=== PATIENT | male | born 1995 | race African-American/Black ===

== ENCOUNTER 2016-06-16 02:41 | Inpatient (IN) | payer BC ==
--- NOTE | ~2016-06-16 | PN ---
Unit #: [id number] #: [id number] Patient: CANDI ORDONEZ [id number] [facility] [address] [place] [address] [id number] I MR#: [id number] NAME: CANDI ORDONEZ ROOM: [facility] Age: 21 Sex: M Admission Date: 06/16/2016 : 1995 Attending Physician: Fabiola Garcia M.D. Admitting Physician: Fabiola Garcia M.D. Primary Care Physician: Primary Care Physician Lise BAKER NOTES DATE OF SERVICE: 06/20/2016 SUBJECTIVE Mr. Ordonez is a 21-year-old male who was seen today and chart was reviewed, and case was discussed with the staff. He has been anxious, withdrawn, and rather seclusive to himself. Meanwhile, he has been cooperative with treatment recommendation and has been taking the medications and tolerating them fairly well with no reported side effects, though has been reporting some persistent depressive symptoms along with anxiety. MENTAL STATUS EXAMINATION Young male who was casually dressed with fair personal hygiene, appears to be in no acute distress or discomfort. He was awake and alert on interaction with intact orientation. His mood was anxious with a congruent affect. He denies any suicidal or homicidal ideations. His insight and judgment remain slightly impaired. TREATMENT PLAN 1. We will continue him on his current medications and treatment protocol. We will monitor his response to medications and make further adjustments as needed. 2. We will continue to follow up. Dictated by... Adonis Diggs/elis TD: 06/20/2016 19:24 JOB #: [id number] Unit #: [id number] #: [id number] Patient: CANDI ORDONEZ PROGRESS NOTES Page 1 of 1 X Fabiola Garcia MD PROGRESS NOTE
--- NOTE | ~2016-06-16 | PA ---
Unit #: [id number] #: [id number] Patient: CANDI ORDONEZ [id number] [facility] [address] [place] [address] [id number] I MR#: [id number] NAME: CANDI ORDONEZ ROOM: [facility] Age: 21 Sex: M Admission Date: 06/16/2016 : 1995 Date of Assessment: 06/16/2016 Attending Physician: Fabiola Garcia M.D. Admitting Physician: Fabiola Garcia M.D. Primary Care Physician: Primary Care Physician No PSYCHIATRIC ASSESSMENT DATE OF SERVICE 06/16/2016. IDENTIFYING DATA Mr. Ordonez is a 21-year-old, single, male, who is a resident of [place], [place] and was brought to the hospital accompanied by his mother. CHIEF COMPLAINT "I've been fine. I've not been depressed or anything like that." HISTORY OF PRESENT ILLNESS Mr. Ordonez is a 21-year-old male, who was brought to the hospital by his mother. Upon presentation, he stated "I went to see my event security officer today and I really cannot explain to you why I'm here. I was told to come here because I don't know, I guess the thought I was depressed and need an assessment and not to give her a valid reason to come to [facility]." The patient reports that his mother brought him to [facility] for assessment and he was alone. The patient reports that he will start a job at [employer] tomorrow and he is not currently enrolled and he reports he lives with his mother and that he has always lived with his mother reports that he has not had any income, then he starts a new job tomorrow. The patient reports his mother is the primary support system and reports that he has a 7-month-old son, and that he does not have a custody or visitation on his son. The patient reports arguments with his son's mother that he does not have a good support network and reports that he was previously fired from [employer] for not calling in and not coming to work. He denies any current suicidal or homicidal ideation, though he reports history of suicidal ideation, it appears the attempt in 03/2013 by slitting his wrist to bleed and reports history of self-injurious behavior in the past, and has not intentionally self harmed in over 4 years. [facility] by his event security officer and presented for assessment and was previously hospitalized at [facility] in 2014, has not followed up with outpatient care due to limited financial resources and presented today with lack of social support system. Initially, outpatient recommendation was made, but the patient was seen to be exhibiting some significant depressive symptoms and as such, recommendation for inpatient level of care was made. SUBSTANCE ABUSE HISTORY The patient reports history of alcohol and cannabis abuse in the past. PAST PSYCHIATRIC HISTORY Unit #: [id number] #: [id number] Patient: CANDI ORDONEZ The patient has had a history of inpatient psychiatric treatment at [facility] in 2013 and currently is not active in any treatment program, is not seeing a psychiatrist, not taking any psychotropic medications. PAST MEDICAL HISTORY No acute or chronic medical illnesses. ALLERGIES No known medication allergies. PERSONAL AND SOCIAL HISTORY A 21-year-old male, who reports he lives at home with his mother and is employed, but he has a new job lined up. He denies any current alcohol and drug abuse. MENTAL STATUS EXAMINATION Young male, who was casually dressed with fair personal hygiene, appears to be in no acute distress or discomfort. He was awake and alert on interaction with intact orientation to time, place, and person. His mood was anxious and depressed with a congruent affect. His speech was slow and restricted in content. His thought processes were disorganized with some looseness of associations and flight of ideas. He denies any current suicidal or homicidal ideations, and also denies any auditory or visual hallucinations. His insight and judgment remain significantly impaired. DIAGNOSTIC IMPRESSION Psychiatric: Major depressive disorder, recurrent, moderate, without psychotic features. Medical: None. Stressors: Moderate psychosocial stressors. TREATMENT PLAN 1. The patient has presented with history of substance abuse and mood disorder, and has been decompensating and will need inpatient hospitalization for safety and stabilization. We will start him back on his home medications. We will also recommend antidepressant therapy. 2. Supportive therapy was provided to the patient. ESTIMATED LENGTH OF STAY 5 to 7 days. ABILITY TO HELP SELF Limited. WILLINGNESS TO HELP SELF The patient appears to be willing to help self. STRENGTHS 1. Communicative. 2. Cooperative. PROBLEMS 1. Chronic dysphoric symptoms. 2. Poor social support system. Unit #: [id number] #: [id number] Patient: CANDI ORDONEZ DISCHARGE CRITERIA This will be contingent upon the patient's ability to show resolution of his depression and anxiety and his ability to stay safe to himself, particularly after discharge from the hospital. Dictated by... Adonis Diggs/elis TD: 06/16/2016 08:22 JOB #: [id number] PSYCHIATRIC ASSESSMENT Page 1 of 1 X Fabiola Garcia MD X PSYCHIATRIC ASSESSMENT
--- NOTE | ~2016-06-16 | PN ---
Unit #: [id number] #: [id number] Patient: CANDI ORDONEZ [id number] [facility] [address] [place] [address] [id number] I MR#: [id number] NAME: CANDI ORDONEZ ROOM: [facility] Age: 21 Sex: M Admission Date: 06/16/2016 : 1995 Attending Physician: Fabiola Garcia M.D. Admitting Physician: Fabiola Garcia M.D. Primary Care Physician: Primary Care Physician Lise PATTON PROGRESS NOTES DATE OF SERVICE: 06/21/2016 SUBJECTIVE Mr. Ordonez is a 21-year-old male who was seen today and chart was reviewed and case was discussed with the staff. He has been anxious, withdrawn, and rather seclusive to himself. Meanwhile, he has been complaining of persistent depression and anxiety. He has been taking medications and tolerating them fairly well with no reported side effects. MENTAL STATUS EXAMINATION Young male, who was casually dressed with fair personal hygiene, appears to be in no acute distress or discomfort. He was awake and alert on interaction with intact orientation. His mood was anxious with a congruent affect. He denies any suicidal or homicidal ideation. His insight and judgment remain slightly impaired. TREATMENT PLAN 1. We will continue him on his current medications and treatment protocol. We will monitor his response to the medications and make further adjustments as needed. 2. We will continue to follow up. Dictated by... Adonis Diggs/elis TD: 06/21/2016 08:29 JOB #: [id number] [facility] PROGRESS NOTES Page 1 of 1 X Fabiola Garcia MD PROGRESS NOTE
--- NOTE | ~2016-06-16 | DS ---
Unit #: [id number] #: [id number] Patient: CANDI ORDONEZ [id number] [facility] [address] [place] [address] [id number] I MR#: [id number] NAME: CANDI ORDONEZ ROOM: [facility] Age: 21 Sex: M Admission Date: 06/16/2016 : 1995 Discharge Date: 06/22/2016 Attending Physician: Fabiola Garcia M.D. Primary Care Physician: Primary Care Physician No DISCHARGE SUMMARY IDENTIFYING DATA Mr. Ordonez is a 21-year-old single male, who is a resident of [place], [place] and was brought to the hospital accompanied by his mother. DISCHARGE DIAGNOSES Psychiatric: Major depressive disorder, recurrent, moderate, without psychotic features. Medical: None. Stressors: Moderate psychosocial stressors. HISTORY OF PRESENT ILLNESS Please see initial psychiatric evaluation for details. PAST PSYCHIATRIC HISTORY Please see initial psychiatric evaluation for details. PAST MEDICAL HISTORY Please see initial psychiatric evaluation for details. HOSPITAL COURSE The patient was admitted to the adult psychiatric and chemical dependency unit at [facility] and was oriented to the hospital environment. Routine p.r.n. medications were initiated, and he was started back on his home medications and medications were adjusted and he was closely monitored. He was taking medications regularly and was tolerating them fairly well and was able to show a decent and therapeutic response and was willing to continue treatment on an outpatient basis and as such, it was decided that he will be discharged home and will continue treatment on an outpatient basis. DISCHARGE MEDICATIONS Lexapro 10 mg a day for depression. DISCHARGE CONDITION Stable. PROGNOSIS Fair. Dictated by... Fabiola Garcia M.D. Unit #: [id number] #: [id number] Patient: CANDI ORDONEZ IAA/modl TD: 06/22/2016 07:04 JOB #: [id number] DISCHARGE SUMMARY Page 1 of 1 X Fabiola Garcia MD X DISCHARGE SUMMARY
--- NOTE | ~2016-06-16 | PN ---
Unit #: [id number] #: [id number] Patient: CANDI NAVARRO [id number] [facility] [address] [place] [address] [id number] I MR#: [id number] NAME: CANDI NAVARRO ROOM: [facility] Age: 21 Sex: M Admission Date: 06/16/2016 : 1995 Attending Physician: Fabiola Garcia M.D. Admitting Physician: Fabiola Garcia M.D. Primary Care Physician: Primary Care Physician Lise PATTON PROGRESS NOTES DATE 06/17/2016 DISCUSSION The patient offers no new complaints today. Given his history of extensive alcohol use, I will order transfer to the [facility] or [address] [place] [address] unit. Dictated by... Reji Spain M.D. CB/rhianna TD: 06/17/2016 15:25 JOB #: [id number] [facility] PROGRESS NOTES Page 1 of 1 X Reji Spain MD X PROGRESS NOTE
--- NOTE | ~2016-06-16 | PN ---
Unit #: [id number] #: [id number] Patient: CANDI ORDONEZ [id number] [facility] [address] [place] [address] [id number] I MR#: [id number] NAME: CANDI ORDONEZ ROOM: [facility] Age: 21 Sex: M Admission Date: 06/16/2016 : 1995 Attending Physician: Fabiola Garcia M.D. Admitting Physician: Fabiola Garcia M.D. Primary Care Physician: Primary Care Physician Lise PATTON PROGRESS NOTES DATE OF SERVICE: 06/19/2016 SUBJECTIVE Mr. Ordonez is a 21-year-old male with mood disorder, who was seen today and chart was reviewed, and case was discussed with the staff. He remains anxious, withdrawn, depressed, and rather seclusive to himself. Meanwhile, he has been cooperative with treatment recommendations and has been taking medications and tolerating them fairly well with no reported side effects. MENTAL STATUS EXAMINATION Young male who was casually dressed with fair personal hygiene, appears to be in no acute distress or discomfort. He was awake and alert on interaction with intact orientation. His mood was anxious and depressed with a congruent affect. His speech was slow and restricted in content. He reports having suicidal ideation, but denies any homicidal ideation. His insight and judgment remain slightly impaired. TREATMENT PLAN We will continue him on his current medications and treatment protocol. We will monitor his response to medications and make further adjustments as needed. Dictated by... Adonis Diggs/elis TD: 06/19/2016 17:22 JOB #: [id number] [facility] PROGRESS NOTES Page 1 of 1 X Fabiola Garcia MD PROGRESS NOTE
--- NOTE | ~2016-06-16 | HP ---
Unit #: [id number] #: [id number] Patient: RAMIRO NAVARRO [id number] [place] [address] [id number] I MR#: [id number] NAME: RAMIRO NAVARRO ROOM: [facility] Age: 21 Sex: M Admission Date: 06/16/2016 : 1995 Attending Physician: Fabiola Garcia M.D. Admitting Physician: Fabiola Garcia M.D. Primary Care Physician: Primary Care Physician No HISTORY AND PHYSICAL HISTORY OF PRESENT ILLNESS Ramiro is a 21 year old admitted to [address] [place] [address] because of his abuse of alcohol. PAST MEDICAL HISTORY Long history of alcohol abuse. PAST SURGICAL HISTORY Nothing reported. ALLERGIES No known drug allergies. SOCIAL HISTORY Smokes, drinks alcohol frequently and denies illicit drug use. FAMILY HISTORY Medically noncontributory. REVIEW OF SYSTEMS CONSTITUTIONAL: No fever or chills. HEENT: Denies any sore throat, ear pain or runny nose. CARDIOVASCULAR: Denies chest pain, irregular heart rhythm or palpitations. CHEST: Denies shortness of breath or cough. No hemoptysis. GASTROINTESTINAL: Denies nausea, vomiting, diarrhea or chronic constipation. ENDOCRINE: Denies history of increased thirst or urination. No recent significant weight loss or gain. GENITOURINARY: Denies dysuria, frequency, or hematuria. SKIN: Denies any rashes. HEMATOLOGIC: Denies history of increased bleeding or bruising. MUSCULOSKELETAL: Denies any hot, swollen joints. No generalized muscle pain. NEUROLOGIC: Denies problems with vision or speech. No frequent, severe headaches. No numbness, tingling or weakness in any extremities. Denies loss of bladder or bowel control. CURRENT MEDICATIONS 1. Lexapro 10 mg daily. 2. Nicotine patch 14 mg daily. 3. Vistaril p.r.n. 4. Desyrel p.r.n. 5. Milk of Magnesia p.r.n. Unit #: [id number] #: [id number] Patient: RAMIRO NAVARRO 6. Maalox p.r.n. 7. Tylenol p.r.n. PHYSICAL EXAMINATION GENERAL: Alert, well-nourished, in no apparent distress. VITAL SIGNS: Blood pressure 113/70, heart rate 82, respirations 16, temperature 98.6. WEIGHT: 161. HEIGHT: 5 feet 5 inches. SKIN: Warm and dry without rash or lesion. HEENT: Normocephalic. TMs not viewed. Oral and nasal passages clear. Conjunctivae clear. PERRLA. EOMs intact. NECK: Supple without lymphadenopathy or thyromegaly. HEART: Regular rate and rhythm without murmur. LUNGS: Clear. ABDOMEN: Soft, nontender. : Not done. EXTREMITIES: No evidence of cyanosis, clubbing or edema. Moves all without focal deficit. NEUROLOGICAL: Grossly within normal limits. Cranial Nerves: II: Visual medel are intact. III, IV AND : Extraocular movements are intact. Pupils are equal, round and reactive to light. V: Facial sensation is grossly normal. VII: Facial movements and expression are normal. VIII: Auditory acuity grossly intact. IX, X: Uvula is midline. Phonation is normal. XI: Patient shrugs shoulders and turns head normally. XII: Tongue protrudes in the midline. Sensory and Motor Function: Sensory and motor sensation is grossly normal. Motor: moves all extremities well. Coordination: Gait is normal. Deep Tendon Reflexes: Intact. IMPRESSION Psychiatric admission. RECOMMENDATIONS PSYCHIATRIC: Per psychiatrist. MEDICAL: See no contraindications to participate in facility's activities. MEDICAL PROGNOSIS Good. MEDICAL CONDITION Stable. Dictated by... Aroldo NgoAPorsha. for Adonis Snyder/rhianna TD: 06/16/2016 23:15 JOB #: [id number] Unit #: [id number] #: [id number] Patient: RAMIRO NAVARRO HISTORY AND PHYSICAL Page 1 of 1 X Oneida Wray HISTORY AND PHYSICAL
--- NOTE | ~2016-06-16 | TN ---
Unit #: [id number] #: [id number] Patient: CANDI ORDONZE [id number] [facility] [address] [place] [address] [id number] I MR#: [id number] NAME: CANDI ORDONEZ ROOM: [facility] Age: 21 Sex: M Admission Date: 06/16/2016 : 1995 Discharge Date: 06/22/2016 Attending Physician: Fabiola Garcia M.D. Primary Care Physician: Primary Care Physician No LOC TRANSFER NOTE DATE OF SERVICE: 06/23/2016 IDENTIFYING DATA Mr. Ordonez is a 21-year-old single male who is a resident of [place], [place] and was stepped down to the outpatient treatment program from the adult inpatient chemical dependency unit, where he was hospitalized under my care from 06/16/2016 to 06/22/2016 and was diagnosed and treated for depression and alcohol dependence, was medically detoxed from alcohol and was stabilized on a combination of Lexapro. He reports that he went home and has been staying with his mother in a clean environment, but that he has been struggling with his anxiety and seen to be shaky and tremulous, reports that in the past he has been on Vistaril and that it has helped him. Meanwhile, he reports his depression is better with Lexapro which he has been taking and tolerating it regularly. SUBSTANCE ABUSE HISTORY The patient denies any history of alcohol. The patient reports history of alcohol dependence, but denies any other drug abuse. PAST PSYCHIATRIC HISTORY The patient has had history of inpatient and outpatient psychiatric and chemical dependency treatment and currently he is on Lexapro 10 mg a day. PAST MEDICAL HISTORY No acute or chronic medical illnesses. ALLERGIES No known medication allergies. PERSONAL AND SOCIAL HISTORY A 21-year-old male who reports that he is single, unemployed, and lives with his mother and has fairly decent social support system. MENTAL STATUS EXAMINATION Young male who was casually dressed with fair personal hygiene, appears to be in no acute distress or discomfort. He was awake and alert on interaction with intact orientation. His mood was anxious and depressed with a congruent affect. His speech was slow and goal directed. His thought processes were disorganized with some looseness of associations. He denies any suicidal or homicidal ideations, and also denies any auditory or visual hallucinations. His insight and judgment remain significantly impaired. Unit #: [id number] #: [id number] Patient: CANDI ORDONEZ DIAGNOSTIC IMPRESSION Psychiatric: Major depressive disorder, recurrent, moderate, without psychotic features; alcohol dependence, moderate. Medical: None. Stressors: Moderate psychosocial stressors. TREATMENT PLAN 1. The patient has presented with a history of mood disorder and substance abuse. We will recommend enrolling him into the outpatient treatment program and maintaining him on his current medications. We will monitor his response to medications and make further adjustments as needed. 2. We will also prescribe him Vistaril to help with the anxiety and trazodone to help him with sleep. 3. Supportive therapy was provided to the patient. ESTIMATED LENGTH OF STAY 14 to 21 days. ABILITY TO HELP SELF Limited. WILLINGNESS TO HELP SELF The patient appears to be willing to help self. STRENGTHS 1. Communicative. 2. Cooperative. PROBLEMS 1. Chronic dysphoric symptoms. 2. Chronic chemical dependency. DISCHARGE CRITERIA This will be contingent upon the patient's ability to show resolution of his depression and anxiety and his ability to stay safe to himself, particularly after discharge from the hospital. Dictated by... Fabiola Garcia M.D. YUSUF/elis TD: 06/23/2016 13:59 JOB #: [id number] LOC TRANSFER NOTE Page 1 of 1 X Fabiola Garcia MD X LOC TRANSFER NOTE
--- NOTE | ~2016-06-16 | PN ---
Unit #: [id number] #: [id number] Patient: CANDI NAVARRO [id number] [facility] [address] [place] [address] [id number] I MR#: [id number] NAME: CANDI NAVARRO ROOM: [facility] Age: 21 Sex: M Admission Date: 06/16/2016 : 1995 Attending Physician: Fabiola Garcia M.D. Admitting Physician: Fabiola Garcia M.D. Primary Care Physician: Primary Care Physician Lise PATTON PROGRESS NOTES DATE 06/18/2016 DISCUSSION The patient seen in coverage for Dr. Garcia who will reassume care of the patient on 06/19. He offers no new complaints and exhibits little in the way of signs or symptoms of withdrawal. He is tolerating Lexapro without complaint and is much brighter. I have encouraged him to increase his participation within the therapeutic milieu. Dictated by... Reji Spain M.D. CB/dontrell TD: 06/19/2016 04:41 JOB #: [id number] [facility] PROGRESS NOTES Page 1 of 1 X Reji Spain MD X PROGRESS NOTE
[2016-06-16 09:31] LABS: BASOPHIL# 0.1 X10e3 (0-0.3); BASOPHIL% 0.5 % (0-2.5); EOSINOPHIL# 0.2 X10e3 (0-0.7); EOSINOPHIL% 1.9 % (0.0-7.0); HEMOGLOBIN 14.1 gm/dL (13.0-16.0); LYMPHOCYTE% 40.6 % (17.0-45.0); MEAN CELL VOLUME 91.3 FL (83-96); MEAN CORPUSCULAR HEMOGLOBIN 30.7 PG (28-34); MEAN CORPUSCULAR HGB CONC 33.6 g/dL (30-36); MONOCYTE# 0.8 X10e3 (0-1.0); MONOCYTE% 6.6 % (3.0-12.0); NEUTROPHIL# 6.2 X10e3 (1.5-7.1); NEUTROPHIL% 50.4 % (40-75); PLATELET COUNT 254 X10e3 (140-420); RED BLOOD COUNT 4.59 X10e (3.90-5.60); WHITE BLOOD COUNT 12.3 X10e3 (4.0-10.5)
[2016-06-16 09:44] LABS: DIFF IND NO
[2016-06-16 10:07] LABS: THYROID STIMULATING HORMONE 2.27 uIU/ml (0.34-5.60)
[2016-06-16 10:10] LABS: ALBUMIN SERUM 4.2 g/dL (3.5-5.0); BILIRUBIN,TOTAL 0.6 mg/dL (0.2-2.0); BUN/CREATININE RATIO 11.11; CALCIUM SERUM 9.1 mg/dL (8.4-10.2); CREATININE SERUM 0.9 mg/dL (0.6-1.4); PROTEIN TOTAL SERUM 6.6 g/dL (6.0-8.3)
[2016-06-16 10:14] LABS: FREE THYROXIN (T4) 0.86 ng/dL (0.58-1.64)
[2016-06-19 12:28] LABS: URINE APPEARANCE CLEAR; URINE BILIRUBIN NEG (NEG); URINE BLOOD NEG (NEG); URINE COLOR YELLOW; URINE GLUCOSE NEG (NEG); URINE KETONE NEG (NEG); URINE LEUKOCYTE ESTERASE NEG (NEG); URINE NITRATE NEG (NEG); URINE PH 5.5 (5-8); URINE PROTEIN NEG (NEG); URINE SPECIFIC GRAVITY 1.009 (1.003-1.035); URINE UROBILINOGEN 0.2 MG/DL (NEG)
[2016-06-19 12:46] LABS: AMPHETAMINE NEG (NEG); BARBITURATES NEG (NEG); BENZODIAZEPINES NEG (NEG); COCAINE NEG (NEG); MARIJUANA NEG (NEG); OPIATES NEG (NEG); TRICYCLIC ANTIDEPRESSANTS NEG (NEG); U METHADONE NEG (NEG)
== END 2016-06-22 11:30 | disposition home or self-care (01) | DRG 885 ==
LOC: P1S 02:41 → P1E 06-17 15:16
PROVIDERS: Psychiatry & Neurology Psychiatry
DX: F33.1 Major depressive disorder, recurrent, moderate (principal); R45.851 Suicidal ideations
CPT/HCPCS: 80053; 80307; 81003; 84439; 84443; 85025